=== PATIENT | female | born 1980 | race Caucasian/White ===

== ENCOUNTER 2023-05-15 13:03 | Emergency (ER) | payer OTHER ==
[~2023-05-15 13:03] MED LIST: Iopamidol-370 76% 500 ML MDV (1 ML CHARGE) ONE
[2023-05-15] MEDS ORDERED: Ondansetron PF 4 MG/2 ML Vial ONE (13:20)
[2023-05-15] MEDS ORDERED: Ketorolac Tromethamine 30 MG/ML VIAL ONE (13:20)
[2023-05-15] MEDS ORDERED: Famotidine/PF 20 mg/2ml Vial ONE (13:20)
[2023-05-15 13:37] LABS: #Monocytes 0.9 thou/uL (0.11-0.59); #Neutrophils 13.9 thou/uL (1.40-6.50); %Basophils 0.1 % (0.0-1.0); %Lymphocytes 3.7 % (21.0-51.0); %Monocytes 5.7 % (0.0-10.0); %Neutrophils 89.7 % (42.0-75.0); Hemoglobin 15.8 g/dL (12.0-16.0); Mean Corpuscular HGB CONC 33.8 g/dL (32.0-36.0); Mean Corpuscular Hemoglobin 28.5 pg (27.0-31.0); Mean Corpuscular Volume 84.3 fl (78.0-98.0); Mean Platelet Volume 10.8 fL (7.4-10.4); Platelet Count 166 10x3/uL (130-400); RBC Distribution Width 13.7 % (11.5-14.5); Red Blood Cell (RBC) Count 5.55 mill/uL (4.20-5.40); White Blood Cell (WBC) Count 15.5 10x3/uL (4.8-10.8)
[2023-05-15 14:06] LABS: BHCG - Serum Negative (NEGATIVE); Pregs Control Background? CLEAR/WHITE (CLR/WHITE); Pregs Control Bar Appear? YES (CONTROL BAR)
[2023-05-15 14:16] LABS: ALT (SGPT) 22 U/L (8-55); AST (SGOT) 17 U/L (5-34); Albumin 4.5 g/dL (3.5-5.0); Alkaline Phosphatase 67 U/L (40-110); Anion Gap 15 mmol/L (10-20); BUN (Urea Nitrogen) 15 mg/dL (7.0-18.7); Calc. Creatinine Clearance 0 mL/min (70-130); Calcium 9.8 mg/dL (7.8-10.44); Carbon Dioxide 18 mmol/L (22-29); Estimated GFR 71; Globulin 2.8 g/dL (2.4-3.5); Glucose 166 mg/dL (70-105); Lipase 9 U/L (8-78); Potassium 3.4 mmol/L (3.5-5.1); Protein, Total 7.3 g/dL (6.0-8.3); Sodium 133 mmol/L (136-145)
[2023-05-15] MEDS ORDERED: Piperacillin/Tazobactam 4.5 GM VIAL ONE (14:39)
[2023-05-15 14:59] LABS: Bilirubin Negative (Negative); Blood, Urine Negative (Negative); CAUTI Indications for Culture Dysuria,urgency,freq; Clarity Turbid (Clear); Glucose, Urine (Dipstick) Normal (Negative); Ketone, Urine Trace mg/dL (Negative); Leukocyte 25 Leu/uL (Negative); Nitrite Negative (Negative); Protein, Urine (Dipstick) 100 mg/dL (Neg-Trace); RBC/HPF 0-3 HPF (0-3); Specific Gravity, Urine 1.035 (1.002-1.036); Urobilinogen Normal mg/dL (Less than 2)
[2023-05-15] MEDS ORDERED: Potassium Chloride 20 MEQ TAB ONE (15:02)
[2023-05-15 15:06] LABS: Bacteria/HPF 1+ HPF (None Seen)
[2023-05-15 15:07] LABS: Urine Culture Reflex No No
[2023-05-15 15:10] LABS: Chloride 103 mmol/L (98-107)
== END 2023-05-15 15:55 | disposition home or self-care (01) ==
LOC: ERS 13:03
DX: K52.9 Noninfective gastroenteritis and colitis, unspecified (principal); D72.829 Elevated white blood cell count, unspecified
CPT/HCPCS: 36415; 71045; 74177; 76705; 80053; 81001; 83605; 83690; 84703; 85025; 87040; 93005; 94760; 96361; 96365; 96375; J1885; J2405; J2543; Q9967; S0028